=== PATIENT | female | born 1995 | race Two or more races ===

== ENCOUNTER 2020-07-26 18:04 | Emergency (ER) | payer MEDICAID ==
[~2020-07-26] VITALS: Ht 162.6 cm; Wt 64.0 kg
[2020-07-26 19:35] LABS: CLARITY URINE CLEAR (CLEAR); COLOR URINE YELLOW (YELLOW); KETONES URINE NEGATIVE (NEGATIVE); LEUKOCYTE ESTERASE URINE 3+ (NEGATIVE); NITRITE URINE NEGATIVE (NEGATIVE); OCCULT BLOOD URINE NEGATIVE (NEGATIVE); PROTEIN URINE NEGATIVE (NEGATIVE); SPECIFIC GRAVITY URINE 1.011 (1.005-1.030); UROBILINOGEN URINE 0.2 E.U./dL (0.2-1.0)
[2020-07-26] MEDS ORDERED: CEFTRIAXONE SODIUM 500 MG/VIAL IM ONE (21:15)
[2020-07-26] MEDS ORDERED: AZITHROMYCIN 500 MG TABLET PO ONE (21:15)
[2020-07-26] MEDS ORDERED: LIDOCAINE HCL 1% 20ML VIAL (Pyxis) INJ INFIL ONE (21:15)
[2020-07-26] MEDS ORDERED: METR500T MT (21:30)
[2020-07-26 21:51] VITALS: BP 118/77
[2020-07-29 04:09] LABS: NEISSERIA GONORRHOEAE NAA Negative (Negative)
== END 2020-07-26 21:53 | disposition home or self-care (01) ==
LOC: ER 18:04
DX: N76.0 Acute vaginitis (principal); R03.0 Elevated blood-pressure reading, without diagnosis of hypertension
CPT/HCPCS: 81003; 81025; 87210; 87491; 87591; 96372; 99283; J0696; J3490; Z7610